=== PATIENT | female | born 1980 | race Caucasian/White ===

== ENCOUNTER 2017-09-02 10:55 | Emergency (ER) | payer MEDICAID ==
[~2017-09-02] VITALS: Ht 154.9 cm; Wt 78.7 kg
[2017-09-02 11:11] VITALS: Ht 154.9 cm; Wt 78.7 kg
[2017-09-02 15:40] VITALS: BP 109/75
== END 2017-09-02 15:40 | disposition home or self-care (01) ==
LOC: ED 10:55
DX: M54.5 Low back pain (principal); Z90.89 Acquired absence of other organs
CPT/HCPCS: 87804; J1885